=== PATIENT | female | born 1980 | race Hispanic/Latino ===

== ENCOUNTER 2017-03-24 07:06 | Emergency (ER) | payer OTHER | END 2017-03-24 07:21 | disposition home or self-care (01) | LOC: ERS 07:06 | DX: Z57.8 Occupational exposure to other risk factors (principal); E03.9 Hypothyroidism, unspecified; Z79.899 Other long term (current) drug therapy | CPT/HCPCS: 99283 ==

== ENCOUNTER 2020-05-04 12:58 | Outpatient (CLI) | payer BC | END 2020-05-04 12:59 | disposition home or self-care (01) | LOC: BICRAD 12:58 | PROVIDERS: ATTEND Family Medicine | DX: M54.9 Dorsalgia, unspecified (principal); M43.17 Spondylolisthesis, lumbosacral region; M48.061 Spinal stenosis, lumbar region without neurogenic claudication | CPT/HCPCS: 72100 ==

== ENCOUNTER 2020-05-25 14:30 | Outpatient (CLI) | payer BC | END 2020-05-25 14:31 | disposition home or self-care (01) | LOC: TBSIIMAG 14:30 | PROVIDERS: ATTEND Family Medicine | DX: M51.16 Intervertebral disc disorders with radiculopathy, lumbar region (principal); M47.817 Spondylosis without myelopathy or radiculopathy, lumbosacral region; M43.17 Spondylolisthesis, lumbosacral region; M48.07 Spinal stenosis, lumbosacral region | CPT/HCPCS: 72148 ==

== ENCOUNTER 2020-07-20 14:18 | Outpatient (CLI) | payer BC | END 2020-07-20 14:19 | disposition home or self-care (01) | LOC: BICCT 14:18 | PROVIDERS: ATTEND Surgery | DX: M43.16 Spondylolisthesis, lumbar region (principal); M43.17 Spondylolisthesis, lumbosacral region; M48.061 Spinal stenosis, lumbar region without neurogenic claudication; M47.27 Other spondylosis with radiculopathy, lumbosacral region | CPT/HCPCS: 72110; 72131 ==